=== PATIENT | female | born 1955 | race Caucasian/White ===

== ENCOUNTER → 2016-11-21 | Outpatient (CLI) | payer OTHER ==
[2016-11-21 11:50] LABS: Appearance,Urine Clear (Clear); Bilirubin,Urine Negative (Negative); Glucose,Urine (UA) Negative (Negative); Ketones,Urine Negative (Negative); Leukocyte Esterase,Urine Small (Negative); Mucus,Urine Occasional /hpf; Nitrite,Urine Negative (Negative); PH, Urine 5.5 (5.0-8.0); Particle Count 3763; Protein,Urine Negative (Negative); RBC,Urine <1 /hpf (0-5); Specific Gravity,Urine 1.022 (1.001-1.035); Squamous Epithelial Cell,Urine <1 /hpf (0-4); UA Billing (MACRO vs. MICRO) MICRO; Urobilinogen,Urine <2.0 mg/dL (<2.0); WBC,Urine 1 /hpf (0-5)
[2016-11-21 11:53] LABS: CH 29.9; CHCM 32.5; HCT 39.5 % (34.0-46.0); HDW 2.78; HGB 12.9 gm/dL (11.4-16.0); MCH 30.2 pg (25.0-35.0); MCHC 32.6 g/dL (31.0-37.0); MCV 92.6 fL (80.0-100.0); Mean Platelet Volume 7.4; RBC 4.26 m/uL (3.80-5.40); RDW 13.3 % (11.5-15.5); WBC 6.5 k/uL (3.8-10.6)
[2016-11-21 12:41] LABS: ALT 31 U/L (9-52); AST 28 U/L (14-36); Alkaline Phosphatase 76 U/L (38-126); Anion Gap 11 mmol/L; Bilirubin, Delta 0.4 mg/dL (0.0-0.2); Blood Urea Nitrogen 15 mg/dL (7-17); Calcium 10.1 mg/dL (8.4-10.2); Carbon Dioxide 31 mmol/L (22-30); Chloride 103 mmol/L (98-107); Cholesterol 200 mg/dL (<200); Glucose 109 mg/dL (74-99); HDL Cholesterol 71 mg/dL (40-60); Non-African American GFR(MDRD) >60 (>60 ml/min/1.73 sqM); Potassium 5.7 mmol/L (3.5-5.1); Sodium 145 mmol/L (137-145); Total Bilirubin 0.8 mg/dL (0.2-1.3); Total Protein 8.5 g/dL (6.3-8.2); Triglycerides 91 mg/dL (<150)
[2016-11-21 13:18] LABS: Vitamin B12 427 pg/mL (239-931)
[2016-11-21 14:13] LABS: Hemoglobin A1C 5.2 % (4.2-6.1)
[2016-11-23 09:02] LABS: Hepatits C Virus RNA, Quant <12 IU/mL (<12); LOG HCV IU/mL <1.08 (<1.08)
== END | disposition home or self-care (01) ==
LOC: LABWHC1 11:21
PROVIDERS: ATTEND Physician Assistant
DX: B18.2 Chronic viral hepatitis C (principal); R00.2 Palpitations; Z79.899 Other long term (current) drug therapy
CPT/HCPCS: 36415; 80053; 80061; 81001; 82248; 82306; 82607; 83036; 84443; 85027; 87522

== ENCOUNTER → 2016-11-28 | Outpatient (CLI) | payer OTHER | END | disposition home or self-care (01) | LOC: RADECHMAIN 12:49 | PROVIDERS: ATTEND Family Medicine | DX: E87.5 Hyperkalemia (principal); R00.2 Palpitations | CPT/HCPCS: 36415; 84132; 93225; 93226 ==

== ENCOUNTER → 2016-12-23 | Outpatient (CLI) | payer OTHER ==
--- NOTE | 2016-12-23 17:05 | MR ---
EXAMINATION TYPE: MR angio head wo con DATE OF EXAM: 12/23/2016 4:21 PM COMPARISON: 07/06/2016 HISTORY: Cerebral aneurysm, nonruptured TECHNIQUE: Utilizing 3-D [id number] intracranial MRA of the [place] of [place] was performed. FINDINGS: The vertebrobasilar system as well as intracranial portions of the internal carotid arteries and thei r major tributaries are patent. 6 mm left carotid siphon aneurysm is stable. There is a hypoplastic right A1 segment with a dominant left A2 segment. Left internal carotid artery is ectatic. Posterior cerebral artery on the left originates from the anterior circulation. IMPRESSION: 1. Stable left distal ICA aneurysm measuring 6 mm unchanged in size or morphology from previous exam EXAMINATION TYPE: MR angio neck wo/w con DATE OF EXAM: 12/23/2016 4:21 PM COMPARISON: NONE HISTORY: Cerebral aneurysm, nonruptured CONTRAST: Standard multiplanar, multisequence MRI departmental protocol utilizing 20 mL intravenous MultiHance gadolinium contrast. FINDINGS: Motion artifact mildly limits the exam. Vertebral arteries are patent. Left vertebral artery slightly dominant. Carotid bifurcations are widely patent. No evidence of significant stenosis bilaterally. Visualized portion of the great vessels appear to be patent. Limited assessment of the right subclavi an vasculature due to artifact. IMPRESSION: No significant stenosis involving the carotid bifurcation.
== END | disposition home or self-care (01) ==
LOC: RADMRIMAIN 15:24
PROVIDERS: ATTEND Neurological Surgery
DX: I67.1 Cerebral aneurysm, nonruptured (principal)
CPT/HCPCS: 70544; 70549; A9577

== ENCOUNTER → 2017-03-18 | Outpatient (CLI) | payer OTHER ==
[2017-03-18 13:32] LABS: CHCM 33.9; HCT 38.6 % (34.0-46.0); HDW 2.67; HGB 12.9 gm/dL (11.4-16.0); MCH 29.7 pg (25.0-35.0); MCHC 33.4 g/dL (31.0-37.0); Mean Platelet Volume 7.2; RBC 4.34 m/uL (3.80-5.40); RDW 13.1 % (11.5-15.5); WBC 6.1 k/uL (3.8-10.6)
[2017-03-18 13:43] LABS: Bilirubin, Delta 0.3 mg/dL (0.0-0.2); Total Bilirubin 0.7 mg/dL (0.2-1.3); Total Protein 7.9 g/dL (6.3-8.2)
[2017-03-20 07:29] LABS: Hepatits C Virus RNA, Quant <12 IU/mL (<12); LOG HCV IU/mL <1.08 (<1.08)
== END | disposition home or self-care (01) ==
LOC: LABWHC1 13:00
PROVIDERS: ATTEND Physician Assistant
DX: B18.2 Chronic viral hepatitis C (principal)
CPT/HCPCS: 36415; 80076; 85027; 87522

== ENCOUNTER → 2017-05-09 | Outpatient (CLI) | payer OTHER ==
--- NOTE | 2017-05-09 11:31 | MR ---
EXAMINATION TYPE: MR angio head wo con DATE OF EXAM: 05/09/2017 COMPARISON: Prior MRA 12/23/2016 HISTORY: Cerebral Aneurysm, Left side hearing/left side weakness TECHNIQUE: Time of flight images focusing on the [place] of [place] were performed without contrast. FINDINGS: The exam is stable. Anterior posterior circulations are patent. There is no evident filling defect dissection. No vascular malformation. Atrophic A1 segment of the internal carotid artery on t he right again noted. Internal carotid artery on the left shows a diverticulum as on previous exam. The medial internal carotid artery [place] aneurysm shows a stable appearance. Signal somewhat redu greg in this region likely due to flow artifact. IMPRESSION: Stable aneurysm.
== END | disposition home or self-care (01) ==
LOC: RADMRIMAIN 10:03
PROVIDERS: ATTEND Family Medicine
DX: I67.1 Cerebral aneurysm, nonruptured (principal)
CPT/HCPCS: 70544

== ENCOUNTER → 2017-07-14 | Outpatient (CLI) | payer OTHER ==
--- NOTE | 2017-07-14 19:58 | CT ---
EXAMINATION TYPE: CT abdomen pelvis w con DATE OF EXAM: 07/14/2017 HISTORY: Lower abdominal pain with diarrhea x2 months. CT DLP: 1282.6mGycm Automated Exposure Control for Dose Reduction was Utilized. CONTRAST: CT scan of the abdomen and pelvis is performed with IV Contrast, patient injected with 100 mL of Omni paque 300. COMPARISON: 06/26/2012. FINDINGS: LUNG BASES: No significant abnormality is appreciated. LIVER/GB: No significant abnormality is appreciated. No cholelithiasis. PANCREAS: No significant abnormality is seen. No ductal dilatation. SPLEEN: No significant abnormality is seen. ADRENALS: No significant abnormality is seen. No focal lesion KIDNEYS: Multiple hypoattenuating renal lesions are seen bilaterally that are subcentimeter and too s mall to accurately characterize. These statistically represent renal cysts. BOWEL: Mild thickening of the sigmoid colon and descending colon is seen again thought to relate to i ncomplete distention as no pericolonic fat stranding is seen. Numerous colonic diverticula are apprec iated. No pericolonic fluid collection. Rectal wall thickening versus incomplete distention as noted measuring up to 1.2 cm. LYMPH NODES: No greater than 1cm abdominal or pelvic lymph nodes are appreciated. OSSEOUS STRUCTURES: No significant abnormality is seen. Mild degenerative changes of the lumbar spine at L5-S1. IMPRESSION: Pancolonic diverticulosis without evidence of acute diverticulitis. Rectal wall thickenin g may relate to proctitis or incomplete distention. Evaluation for masses limited at this location. C olonoscopy is recommended if not recently performed given the patient's symptoms..
== END ==
LOC: RADCTMAIN 17:36
PROVIDERS: ATTEND Family Medicine
DX: K57.30 Diverticulosis of large intestine without perforation or abscess without bleeding (principal)
CPT/HCPCS: 74177; Q9967

== ENCOUNTER 2017-09-02 07:43 | Emergency (ER) | payer OTHER ==
--- NOTE | 2017-09-02 08:23 | ED ---
General Adult HPI - General Source: patient, RN notes reviewed Mode of arrival: wheelchair Limitations: no limitations <Lisbeth Tilley - Last Filed: 09/02/17 09:44> <Roberto Mccoy - Last Filed: 09/02/17 11:36> - General Chief complaint: Urogenital Stated complaint: Female Time Seen by Provider: 09/02/17 08:01 - History of Present Illness Initial comments: 61-year-old female presents to the emergency department with a chief complaint of pelvic pressure and pain. Patient states that she has had this for the past few days. Patient states when she urinates she feels a little bit better but it feels hard to urinate. She did have surgery through the right groin recently as well as Mariee catheter and so she believes this is a UTI. Patient denies any pain around the site of the surgery she denies any bleeding from the site. She states it's more urinary-like symptoms. She denies any vaginal bleeding or discomfort. She states the pain does radiate into the rectum she doesn't have any pain to touch of the rectum it just feels like there is also pressure there. Patient was concerned due to her symptoms so she thought that she should be evaluated. Patient denies any recent fever, chills, shortness of breath, chest pain, back pain, nausea vomiting, numbness or tingling, hematuria , constipation or diarrhea, headaches or visual changes, or any other current symptoms. (Lisbeth Tilley) Patient was found by nursing staff to be altered with right-sided weakness. Patient went for stat computed tomography scan. Patient is nonverbal at this time and can provide no further history. Patient reportedly had stent done last week at [facility] for leaking aneurysm. (Roberto Mccoy) - Related Data Home Medications Medication Instructions Recorded Confirmed ALPRAZolam [Xanax] 0.5 mg PO DAILY PRN 09/02/17 09/02/17 Aspirin 325 mg PO DAILY 09/02/17 09/02/17 Cholecalciferol [Vitamin D3] 1,000 unit PO DAILY 09/02/17 09/02/17 Clopidogrel [Plavix] 75 mg PO DAILY 09/02/17 09/02/17 HYDROcodone/APAP 5-325MG [[place]and[place] 1 tab PO TID PRN 09/02/17 09/02/17 5-325] Pantoprazole Sodium [Protonix] 40 mg PO DAILY PRN 09/02/17 09/02/17 Pyridoxine HCl (Vitamin B6) 100 mg PO DAILY 09/02/17 09/02/17 [Vitamin B-6] Allergies Allergy/AdvReac Type Severity Reaction Status Date / Time No Known Allergies Allergy Verified 09/02/17 08:59 Review of Systems ROS Other: All systems not noted in ROS Statement are negative. <Lisbeth Tilley - Last Filed: 09/02/17 09:44> ROS Other: All systems not noted in ROS Statement are negative. Limitations: ROS unobtainable due to patients medical condition <Roberto Mccoy - Last Filed: 09/02/17 11:36> ROS Statement: Those systems with pertinent positive or pertinent negative responses have been documented in the HPI. Past Medical History Additional Past Medical History / Comment(s): hep c. History of Any Multi-Drug Resistant Organisms: None Reported Past Surgical History: Hysterectomy, Tonsillectomy Additional Past Surgical History / Comment(s): stent place in brain from leaking aneursym Past Psychological History: No Psychological Hx Reported Smoking Status: Former smoker Past Alcohol Use History: None Reported Past Drug Use History: None Reported <Lisbeth Tilley Last Filed: 09/02/17 09:44> General Exam Limitations: no limitations Rectal exam: Present: normal inspection, normal rectal tone. Absent: heme (-) stool, black stool, bloody stool, fecal impaction, hemorrhoids, mass, tenderness <Lisbeth Tilley - Last Filed: 09/02/17 09:44> General appearance: alert, other (Patient is alert yet unresponsive. Patient does not follow commands. Patient has right-sided neglect. Right flaccid paralysis. Nonverbal.) Head exam: Present: atraumatic Eye exam: Present: normal appearance, other (Gaze deviated to the left and patient will not cross eyes past midline) ENT exam: Present: normal oropharynx Neck exam: Present: normal inspection Respiratory exam: Present: normal lung sounds bilaterally Cardiovascular Exam: Present: regular rate, normal rhythm GI/Abdominal exam: Present: soft. Absent: tenderness Extremities exam: Present: normal inspection Neurological exam: Present: alert, altered, motor sensory deficit Expanded Neurological exam: Present: inattentive, other (Limited left-sided strength exam however patient is able to left left arm and left leg off the bed.) Speech: Present: total aphasia Cranial nerves: EOM's Intact: Abnormal Right (Right-sided neglect. Unable to gaze to the right.) Motor strength exam: RUE: 0, RLE: 0 Eye Response: (4) open spontaneously Motor Response: (4) withdraws to pain Verbal Response: (1) no verbal response Psychiatric exam: Present: other (Nonverbal) Skin exam: Present: normal color, other (Right inguinal region clean and dry and intact.) <Roberto Mccoy - Last Filed: 09/02/17 11:36> - General Exam Comments Initial Comments: General: The patient is awake and alert, in no distress, and does not appear acutely ill. Eye: Pupils are equal, round and reactive to light, extra-ocular movements are intact; there is normal conjunctiva bilaterally. No signs of icterus. Ears, nose, mouth and throat: There are moist mucous membranes. Neck: The neck is supple, there is no tenderness. Cardiovascular: There is a regular rate and rhythm. No murmur, rub or gallop is appreciated. Respiratory: Lungs are clear to auscultation, respirations are non-labored, breath sounds are equal. No wheezes, stridor, rales, or rhonchi. Gastrointestinal: Soft, non-distended, non-tender abdomen without masses or organomegaly noted. There is no rebound or guarding present. No CVA tenderness. Bowel sounds are unremarkable. Back: There is no tenderness to palpation in the midline. There is no obvious deformity. No rashes noted. Musculoskeletal: Normal ROM, no tenderness, There is no pedal edema. There is no calf tenderness or swelling. Sensation intact. Pulses equal bilaterally 2+. Neurological: CN II-XII intact, There are no obvious motor or sensory deficits. Coordination appears grossly intact. Speech is normal. Skin: Skin is warm and dry and no rashes or lesions are noted. Psychiatric: Cooperative, appropriate mood & affect, normal judgment. (Lisbeth Tilley) Course <Lisbeth Tilley - Last Filed: 09/02/17 09:44> <Roberto Mccoy - Last Filed: 09/02/17 11:36> Vital Signs 11/07/17 11/07/17 11/07/17 07:44 09:17 09:32 Temperature 98.7 F Pulse Rate 99 90 94 Respiratory 18 18 18 Rate Blood Pressure 143/67 166/95 168/95 O2 Sat by Pulse 96 99 99 Oximetry 09/02/17 09/02/17 09/02/17 09:47 10:02 10:17 Temperature Pulse Rate 99 98 82 Respiratory 18 18 18 Rate Blood Pressure 175/99 165/92 164/76 O2 Sat by Pulse 99 98 98 Oximetry 09/02/17 09/02/17 09/02/17 10:32 10:50 11:00 Temperature 97.8 F 98 F Pulse Rate 84 81 80 Respiratory 14 18 18 Rate Blood Pressure 129/66 123/62 120/67 O2 Sat by Pulse 99 96 99 Oximetry 09/02/17 09/02/17 09/02/17 11:05 11:20 11:30 Temperature 98 F Pulse Rate 80 83 85 Respiratory 12 12 12 Rate Blood Pressure 118/68 116/64 115/62 O2 Sat by Pulse 98 100 100 Oximetry - Reevaluation(s) Reevaluation #1: 09/02/17 09:45 I was alerted by the nurse due to a change in the patient's mental status. I evaluated the patient at that time. Patient does appear to have a right-sided facial droop and right-sided facial weakness. Patient also appears to have a right arm and right lower extremity drift. Patient is alert however she is altered as and she does not know the date at this time. Patient is very tearful on exam and patient does experience some aphasia on exam. At this time a code stroke was called. There is concerned due to this recent surgery that was at [facility] that according to the patient was to replace a leaky stent to a brain aneurysm this is her concern for the patient's symptoms. CT was ordered. (Lisbeth Tilely) 09/02/17 10:02 Dr. Ford was contacted and would like Arvind arango and patient transferred to [facility]. 09/02/17 10:15 Dr. Ford was again contacted and is trying to get a hold of the neurosurgeon at [facility] prior to accepting patient. 09/02/17 10:30 [address] speak with Dr. Ford who did speak with at [facility] and does want the patient specifically transferred to [facility]. Concern was brought up regarding transfer time and he states the transfer is only 30-40 minutes longer than to [place] and this surgeon does know this patient and specifically does want the patient. He also recommends adding 1 g/kg of mannitol and 1 g of Keppra and platelets. 09/02/17 10:46 Case was discussed specifically with Dr. Rivers who does specifically want patient transferred to him despite distance. He would prefer patient did fly if possible. Flight team has been contacted. Case was also discussed with Dr. Arguello in the emergency department who will accept transfer. 09/02/17 11:09 [facility] and is apparently already in route. 09/02/17 11:10 Patient was reexamined several times. 09/02/17 11:35 Patient reexamined. [facility] has arrived for transfer. (Roberto Mccoy) EKG Findings - EKG Comments: EKG Findings:: Normal sinus rhythm 97. MS 152. QRS 90. QT 366. QTc 464. Normal axis. Normal QRS. No acute ST change. <Roberto Mccoy - Last Filed: 09/02/17 11:36> Procedures - ABG Interpretation Ph: 7.45 PCO2: 35.6 PO2: 330 Bicarbonate: 25.2 - Intubation Time Out Performed: Yes Sedative: Versed Paralytic: Succinylcholine Laryngoscope: Mosley ET Tube Size: 8 Tube Placement Confirmation: visualized tube passing through cords, equal breath sounds bilaterally, no breath sounds over epigastrium, confirmation by capnometry Patient Tolerated Procedure: well Intubation Complications: none <Roberto Mccoy - Last Filed: 09/02/17 11:36> Medical Decision Making - Lab Data Result diagrams: 09/02/17 09:15 <Lisbeth Tilley - Last Filed: 09/02/17 09:44> - Lab Data Result diagrams: 09/02/17 09:15 09/02/17 09:15 - Radiology Data Radiology results: image reviewed (Computed tomography scan of the brain shows left parietal hemorrhage no mass effect. 4 x 4.8 cm. Chest x-ray does show endotracheal tube in place, otherwise no acute process.) <Roberto Mccoy - Last Filed: 09/02/17 11:36> - Medical Decision Making 61-year-old female presents for suprapubic pain and dysuria. Patient then started to experience a change in mentation. Code stroke was called and CT was performed. (Lisbeth Tilley) - Lab Data Lab Results 09/02/17 09/02/17 09/02/17 Range/Units 08:05 09:15 09:15 WBC 8.8 (3.8-10.6) k/uL RBC 4.22 (3.80-5.40) m/uL Hgb 12.2 (11.4-16.0) gm/dL Hct 36.8 (34.0-46.0) % MCV 87.2 (80.0-100.0) fL MCH 29.0 (25.0-35.0) pg MCHC 33.3 (31.0-37.0) g/dL RDW 13.7 (11.5-15.5) % Plt Count 177 (150-450) k/uL Neutrophils % 72 % Lymphocytes % 20 % Monocytes % 5 % Eosinophils % 1 % Basophils % 0 % Neutrophils # 6.3 (1.3-7.7) k/uL Lymphocytes # 1.8 (1.0-4.8) k/uL Monocytes # 0.4 (0-1.0) k/uL Eosinophils # 0.1 (0-0.7) k/uL Basophils # 0.0 (0-0.2) k/uL PT (9.0-12.0) sec INR (<1.2) APTT (22.0-30.0) sec Sample Site ABG pH (7.35-7.45) ABG pCO2 (35-45) mmHg ABG pO2 (83-108) mmHg ABG HCO3 (21-25) mmol/L ABG Total CO2 (19-24) mmol/L ABG O2 Saturation (94-97) % ABG Base Excess mmol/L FiO2 % Sodium 139 (137-145) mmol/L Potassium 3.9 (3.5-5.1) mmol/L Chloride 102 (98-107) mmol/L Carbon Dioxide 28 (22-30) mmol/L Anion Gap 9 mmol/L BUN 12 (7-17) mg/dL Creatinine 0.54 (0.52-1.04) mg/dL Est GFR (MDRD) Af Amer >60 (>60 ml/min/1.73 sqM) Est GFR (MDRD) Non-Af >60 (>60 ml/min/1.73 sqM) Glucose 101 H (74-99) mg/dL POC Glucose (mg/dL) (75-99) mg/dL POC Glu Extension Division Director ID Calcium 9.6 (8.4-10.2) mg/dL Total Bilirubin 0.7 (0.2-1.3) mg/dL AST 22 (14-36) U/L ALT 30 (9-52) U/L Alkaline Phosphatase 68 (38-126) U/L Total Creatine Kinase (30-135) U/L CK-MB (CK-2) (0.0-2.4) ng/mL CK-MB (CK-2) Rel Index Troponin I (0.000-0.034) ng/mL Total Protein 7.5 (6.3-8.2) g/dL Albumin 4.3 (3.5-5.0) g/dL Amylase <30 L (30-110) U/L Lipase 112 (23-300) U/L Urine Color Yellow Urine Appearance Clear (Clear) Urine pH 6.0 (5.0-8.0) Ur Specific [place] 1.017 (1.001-1.035) Urine Protein Negative (Negative) Urine Glucose (UA) Negative (Negative) Urine Ketones Negative (Negative) Urine Blood Negative (Negative) Urine Nitrite Negative (Negative) Urine Bilirubin Negative (Negative) Urine Urobilinogen <2.0 (<2.0) mg/dL Ur Leukocyte Esterase Negative (Negative) Blood Type Blood Type Confirm Blood Type Recheck Antibody Screen Transfuse Platelets Spec Expiration Date 09/02/17 09/02/17 09/02/17 Range/Units 09:15 09:15 09:24 WBC (3.8-10.6) k/uL RBC (3.80-5.40) m/uL Hgb (11.4-16.0) gm/dL Hct (34.0-46.0) % MCV (80.0-100.0) fL MCH (25.0-35.0) pg MCHC (31.0-37.0) g/dL RDW (11.5-15.5) % Plt Count (150-450) k/uL Neutrophils % % Lymphocytes % % Monocytes % % Eosinophils % % Basophils % % Neutrophils # (1.3-7.7) k/uL Lymphocytes # (1.0-4.8) k/uL Monocytes # (0-1.0) k/uL Eosinophils # (0-0.7) k/uL Basophils # (0-0.2) k/uL PT 10.4 (9.0-12.0) sec INR 1.0 (<1.2) APTT 22.0 (22.0-30.0) sec Sample Site ABG pH (7.35-7.45) ABG pCO2 (35-45) mmHg ABG pO2 (83-108) mmHg ABG HCO3 (21-25) mmol/L ABG Total CO2 (19-24) mmol/L ABG O2 Saturation (94-97) % ABG Base Excess mmol/L FiO2 % Sodium (137-145) mmol/L Potassium (3.5-5.1) mmol/L Chloride (98-107) mmol/L Carbon Dioxide (22-30) mmol/L Anion Gap mmol/L BUN (7-17) mg/dL Creatinine (0.52-1.04) mg/dL Est GFR (MDRD) Af Amer (>60 ml/min/1.73 sqM) Est GFR (MDRD) Non-Af (>60 ml/min/1.73 sqM) Glucose (74-99) mg/dL POC Glucose (mg/dL) 102 H (75-99) mg/dL POC Glu Extension Division Director ID Reyna Ha Calcium (8.4-10.2) mg/dL Total Bilirubin (0.2-1.3) mg/dL AST (14-36) U/L ALT (9-52) U/L Alkaline Phosphatase (38-126) U/L Total Creatine Kinase 23 L (30-135) U/L CK-MB (CK-2) 0.3 (0.0-2.4) ng/mL CK-MB (CK-2) Rel Index 1.3 Troponin I <0.012 (0.000-0.034) ng/mL Total Protein (6.3-8.2) g/dL Albumin (3.5-5.0) g/dL Amylase (30-110) U/L Lipase (23-300) U/L Urine Color Urine Appearance (Clear) Urine pH (5.0-8.0) Ur Specific [place] (1.001-1.035) Urine Protein (Negative) Urine Glucose (UA) (Negative) Urine Ketones (Negative) Urine Blood (Negative) Urine Nitrite (Negative) Urine Bilirubin (Negative) Urine Urobilinogen (<2.0) mg/dL Ur Leukocyte Esterase (Negative) Blood Type Blood Type Confirm Blood Type Recheck Antibody Screen Transfuse Platelets Spec Expiration Date 09/02/17 09/02/17 09/02/17 Range/Units 10:30 10:55 11:15 WBC (3.8-10.6) k/uL RBC (3.80-5.40) m/uL Hgb (11.4-16.0) gm/dL Hct (34.0-46.0) % MCV (80.0-100.0) fL MCH (25.0-35.0) pg MCHC (31.0-37.0) g/dL RDW (11.5-15.5) % Plt Count (150-450) k/uL Neutrophils % % Lymphocytes % % Monocytes % % Eosinophils % % Basophils % % Neutrophils # (1.3-7.7) k/uL Lymphocytes # (1.0-4.8) k/uL Monocytes # (0-1.0) k/uL Eosinophils # (0-0.7) k/uL Basophils # (0-0.2) k/uL PT (9.0-12.0) sec INR (<1.2) APTT (22.0-30.0) sec Sample Site lrad ABG pH 7.45 (7.35-7.45) ABG pCO2 25 L (35-45) mmHg ABG pO2 330 H (83-108) mmHg ABG HCO3 24 (21-25) mmol/L ABG Total CO2 25 H (19-24) mmol/L ABG O2 Saturation 100.0 H (94-97) % ABG Base Excess 0.5 mmol/L FiO2 100 % Sodium (137-145) mmol/L Potassium (3.5-5.1) mmol/L Chloride (98-107) mmol/L Carbon Dioxide (22-30) mmol/L Anion Gap mmol/L BUN (7-17) mg/dL Creatinine (0.52-1.04) mg/dL Est GFR (MDRD) Af Amer (>60 ml/min/1.73 sqM) Est GFR (MDRD) Non-Af (>60 ml/min/1.73 sqM) Glucose (74-99) mg/dL POC Glucose (mg/dL) (75-99) mg/dL POC Glu Extension Division Director ID Calcium (8.4-10.2) mg/dL Total Bilirubin (0.2-1.3) mg/dL AST (14-36) U/L ALT (9-52) U/L Alkaline Phosphatase (38-126) U/L Total Creatine Kinase (30-135) U/L CK-MB (CK-2) (0.0-2.4) ng/mL CK-MB (CK-2) Rel Index Troponin I (0.000-0.034) ng/mL Total Protein (6.3-8.2) g/dL Albumin (3.5-5.0) g/dL Amylase (30-110) U/L Lipase (23-300) U/L Urine Color Urine Appearance (Clear) Urine pH (5.0-8.0) Ur Specific [place] (1.001-1.035) Urine Protein (Negative) Urine Glucose (UA) (Negative) Urine Ketones (Negative) Urine Blood (Negative) Urine Nitrite (Negative) Urine Bilirubin (Negative) Urine Urobilinogen (<2.0) mg/dL Ur Leukocyte Esterase (Negative) Blood Type B Positive Blood Type Confirm B Positive Blood Type Recheck CABO Indicated Antibody Screen NEGATIVE Transfuse Platelets 09/02/17 Spec Expiration Date 09/05/2017 - 2330 Critical Care Time Critical Care Time: Yes Total Critical Care Time: 67 <Roberto Mccoy - Last Filed: 09/02/17 11:36> Disposition <Lisbeth Tilley - Last Filed: 09/02/17 09:44> Time of Disposition: 11:36 - Out of Hospital Transfer - Req. Specs Out of Hospital Transfer - Requested Specifics: Other Emergency Center <Roberto Mccoy - Last Filed: 09/02/17 11:36> Clinical Impression: Intraparenchymal hemorrhage of brain Disposition: OTHER INSTITUTION NOT DEFINED Condition: Critical Referrals: Precious Painting MD [Primary Care Provider] - 1-2 days
[2017-09-02 08:53] LABS: Appearance,Urine Clear (Clear); Bilirubin,Urine Negative (Negative); Glucose,Urine (UA) Negative (Negative); Ketones,Urine Negative (Negative); Leukocyte Esterase,Urine Negative (Negative); Nitrite,Urine Negative (Negative); Protein,Urine Negative (Negative); Specific Gravity,Urine 1.017 (1.001-1.035); UA Billing (MACRO vs. MICRO) CHEM; Urobilinogen,Urine <2.0 mg/dL (<2.0)
[2017-09-02] MEDS ORDERED: RX INFO: IV CONTRAST WAS GIVEN 1 EACH MISC MISCELLANE PRN ×2 (08:54→09:32)
[2017-09-02 09:26] LABS: Glucose,Whole Blood 102 mg/dL (75-99)
[2017-09-02 09:34] LABS: Basophils % (A) 0 %; CH 29.5; CHCM 33.9; Eosinophils # (A) 0.1 k/uL (0-0.7); Eosinophils % (A) 1 %; HCT 36.8 % (34.0-46.0); HDW 2.71; HGB 12.2 gm/dL (11.4-16.0); Luc # (Auto) 0.12; Luc % (Auto) 1; Lymphocytes # (A) 1.8 k/uL (1.0-4.8); Lymphocytes % (A) 20 %; MCHC 33.3 g/dL (31.0-37.0); MCV 87.2 fL (80.0-100.0); Mean Platelet Volume 7.3; Monocytes # (A) 0.4 k/uL (0-1.0); Monocytes % (A) 5 %; Neutrophils # (A) 6.3 k/uL (1.3-7.7); Neutrophils % (A) 72 %; RBC 4.22 m/uL (3.80-5.40); RDW 13.7 % (11.5-15.5); WBC 8.8 k/uL (3.8-10.6); WBC (Perox) 9.26
[2017-09-02 09:45] LABS: ALT 30 U/L (9-52); AST 22 U/L (14-36); Alkaline Phosphatase 68 U/L (38-126); Amylase <30 U/L (30-110); Anion Gap 9 mmol/L; Blood Urea Nitrogen 12 mg/dL (7-17); Calcium 9.6 mg/dL (8.4-10.2); Carbon Dioxide 28 mmol/L (22-30); Chloride 102 mmol/L (98-107); Glucose 101 mg/dL (74-99); Non-African American GFR(MDRD) >60 (>60 ml/min/1.73 sqM); Potassium 3.9 mmol/L (3.5-5.1); Sodium 139 mmol/L (137-145); Total Bilirubin 0.7 mg/dL (0.2-1.3); Total Protein 7.5 g/dL (6.3-8.2)
--- NOTE | 2017-09-02 10:04 | CT ---
EXAMINATION TYPE: CT brain wo con DATE OF EXAM: 09/02/2017 COMPARISON: 12/26/2014, 12/22/2011 INDICATION: Rt facial droop and weakness DLP: 943.8 mGycm, Automated exposure control for dose reduction was used. CONTRAST: None CT of the brain is performed utilizing 3 mm thick sections through the posterior fossa and 3 mm thick sections through the remaining calvarium. Study is performed within 24 hours of arrival to the hosp ital. There is a hyperdensity within the left parietal lobe. This measures approximately 4.0 x 4.8 cm in si ze. Some minimal edema may be adjacent. Findings are compatible with an acute hemorrhage. This appear s largely intra-axial. This hemorrhage appears to decompress into the extra-axial space space. A la rge extra-axial collection is not evident at this time. There is some local sulcal effacement. Some m ild compression of the superior left lateral ventricle is present. No midline shift is evident. No te mporal horn dilatation is evident. The quadrigeminal plate and ambient cistern are widely patent. Sylvian fissures are widely patent. No solid mass lesion is evident. No acute infarcts are evident. Ventricles and sulci are otherwise appropriate for the patient age. Paranasal sinuses and mastoid air cells within the [id number] are clear. Report was called to Dr. Mccoy by Dr. Perez by telephone at 0956 hours 09/02/2017. IMPRESSIONS: 1. Intra-axial acute left parietal hemorrhage may has some early decompression into the sulci on th e left frontal parietal region. Significant mass effect is not evident this time. No hydrocephalus is evident.
[2017-09-02] MEDS ORDERED: MIDAZOLAM (PF) 1 MG/ML 5 ML VIAL IV STA (10:06)
[2017-09-02] MEDS ORDERED: SUCCINYLCHOLINE CHLORIDE VIAL 200 MG/10 ML VIAL IV STA (10:06)
[2017-09-02] MEDS ORDERED: LORazepam 2 MG/ML INJ IV PRN ×2 (10:10)
[2017-09-02] MEDS ORDERED: PROPOFOL 1,000 MG/100 ML VIAL IV SCH (10:15)
[2017-09-02] MEDS ORDERED: niCARdipine 25 MG in SODIUM CHLORIDE 0.9% 240 ML IV ONE (10:15)
[2017-09-02 10:17] LABS: Prothrombin Time 10.4 sec (9.0-12.0)
[2017-09-02 10:25] LABS: Creatine Kinase 23 U/L (30-135)
[2017-09-02] MEDS ORDERED: levETIRAcetam IV 1,000 MG in SALINE 1 100ML.BAG IVPB STA (10:31)
[2017-09-02] MEDS ORDERED: MANNITOL 25% 12.5 GM/50 ML VIAL IV ONE (10:32)
[2017-09-02 10:37] LABS: Creatine Kinase MB 0.3 ng/mL (0.0-2.4); Troponin I <0.012 ng/mL (0.000-0.034)
[2017-09-02] MEDS ORDERED: MANNITOL 20% IV STA (10:42)
[2017-09-02 11:00] LABS: ABG Base Excess 0.5 mmol/L; ABG HCO3 24 mmol/L (21-25); ABG PCO2 25 mmHg (35-45); ABG PH 7.45 (7.35-7.45); ABG PO2 330 mmHg (83-108); ABG TCO2 25 mmol/L (19-24)
--- NOTE | 2017-09-02 11:02 | XR ---
EXAMINATION TYPE: XR chest 1V portable DATE OF EXAM: 09/02/2017 Comparison: None Clinical History: 61-year-old female confusion, altered mental status Findings: ET tube tip is satisfactory. NG tube courses below the diaphragm. The cardiomediastinal silhouette, aorta, and pulmonary vasculature are within normal limits. Mild int erstitial prominence as a chronic appearance. Otherwise, lungs and pleural spaces are clear. Impression: Chronic-appearing changes without acute cardiopulmonary process. Satisfactory ET and NG tubes.
[2017-09-02 11:31] VITALS: RESP 12
[2017-09-02 11:44] VITALS: BP 117/62; PULSE 88; TEMP 97
[2017-09-02] MEDS ORDERED: CHLORHEXIDINE GLUCONATE 15 ML CUP MUCOUS MEM SCH (21:00)
== END 2017-09-02 12:06 | disposition other institution (70) ==
LOC: EC 07:43
DX: I61.8 Other nontraumatic intracerebral hemorrhage (principal); R30.0 Dysuria; R40.2142 Coma scale, eyes open, spontaneous, at arrival to emergency department; R40.2352 Coma scale, best motor response, localizes pain, at arrival to emergency department; R40.2212 Coma scale, best verbal response, none, at arrival to emergency department; Z90.710 Acquired absence of both cervix and uterus; Z87.891 Personal history of nicotine dependence; Z79.82 Long term (current) use of aspirin; Z79.02 Long term (current) use of antithrombotics/antiplatelets; Z79.899 Other long term (current) drug therapy
CPT/HCPCS: 99291; 31500; 96365; 96368; 43753; 51798; 36415; 36600; 94002; 86900; 93005; 86901; 80053; 82150; 82550; 82553; 82805; 83690; 84484; 85025; 85610; 85730; 86850; 81003; 71010; 70450; P9035; J0330; J2250; J2704; J1953